=== PATIENT | female | born 1930 | race Caucasian/White ===

== ENCOUNTER 2018-07-13 06:31 | Emergency (ER) | payer MEDICARE ==
[~2018-07-13] VITALS: Ht 152.4 cm; Wt 58.6 kg
[2018-07-13 06:34] VITALS: BP 141/63; TEMP 98.5
[2018-07-13] MEDS ORDERED: CORDARONE200 MG/TAB PO (06:47)
[2018-07-13] MEDS ORDERED: FOSAMAX 70MG TA70 MG PO (06:47)
[2018-07-13] MEDS ORDERED: THE MEDICINE S200 M2 PO (06:48)
[2018-07-13] MEDS ORDERED: GLUCOSAMINE & C1 TE1 PO (06:48)
[2018-07-13] MEDS ORDERED: ELIQUIS 5MG PO (06:49)
[2018-07-13] MEDS ORDERED: B-121000 MCG PO (06:49)
[2018-07-13] MEDS ORDERED: JANUVIA 100MG100 MG PO (06:50)
[2018-07-13] MEDS ORDERED: SYNTHROID0.05 MG/TA PO (06:50)
[2018-07-13] MEDS ORDERED: MEVACOR 20M20 MG/TAB PO (06:51)
[2018-07-13] MEDS ORDERED: GLUCOPHAGE1000 MG PO (06:51)
[2018-07-13] MEDS ORDERED: SYSTANE 0.4%-0.1 SOL OP (06:52)
[2018-07-13] MEDS ORDERED: VITAMIN D31000 I1 PO (06:53)
[2018-07-13] MEDS ORDERED: VITAMINC1000TA PO (06:53)
[2018-07-13 08:22] VITALS: PULSE 68
== END 2018-07-13 08:22 | disposition home or self-care (01) ==
LOC: COL.ER 06:31
DX: M46.1 Sacroiliitis, not elsewhere classified (principal); I25.10 Atherosclerotic heart disease of native coronary artery without angina pectoris
CPT/HCPCS: J1885

== ENCOUNTER → 2018-12-27 | Outpatient (REF) ==
[~2018-12-27] MED LIST: B-121000 MCG PO; CORDARONE200 MG/TAB PO; ELIQUIS 5MG PO; FOSAMAX 70MG TA70 MG PO; GLUCOPHAGE1000 MG PO; GLUCOSAMINE & C1 TE1 PO; JANUVIA 100MG100 MG PO; MEVACOR 20M20 MG/TAB PO; SYNTHROID0.05 MG/TA PO; SYSTANE 0.4%-0.1 SOL OP; THE MEDICINE S200 M2 PO; VITAMIN D31000 I1 PO; VITAMINC1000TA PO
== END ==
LOC: COL.CARD 14:46
DX: Z01.818 Encounter for other preprocedural examination (principal)